=== PATIENT | female | born 1985 | race Caucasian/White ===

== ENCOUNTER 2017-01-29 19:10 | Emergency (ER) | payer SELFPAY ==
[2017-01-29 20:49] LABS: BASOPHIL % 0.4 % (0-2); PLATELET COUNT 264 x10^3mcL (130-400); RED CELL DISTRIBUTION WIDTH 13.2 % (11.5-14.5)
[2017-01-29 21:17] LABS: CALCIUM 8.9 mg/dL (8.5-10.1); CHLORIDE SERUM 103 mmol/L (98-107); CREATININE SERUM 0.9 mg/dL (0.6-1.0); GFR1 > 60 mL/min; GLUCOSE SERUM 108 mg/dL (74-106); POTASSIUM SERUM 3.5 mmol/L (3.5-5.1); SODIUM SERUM 139 mmol/L (136-145)
[2017-01-29 21:22] LABS: ALBUMIN 3.6 g/dL (3.4-5.0); ALKALINE PHOSPHATASE 72 U/L (46-116); ALT/SGPT 41 U/L (14-59); AST/SGOT 21 U/L (15-37); BILIRUBIN TOTAL 0.22 mg/dL (0.20-1.00); TOTAL PROTEIN, SERUM 7.9 g/dL (6.4-8.2); URIC ACID 5.1 mg/dL (2.6-6.0)
[2017-01-29 22:11] VITALS: BP 117/70
== END 2017-01-29 22:00 | disposition home or self-care (01) ==
LOC: ED 19:10
PROVIDERS: Emergency Medicine
DX: N92.0 Excessive and frequent menstruation with regular cycle (principal); M54.5 Low back pain; Z88.1 Allergy status to other antibiotic agents; Z88.8 Allergy status to other drugs, medicaments and biological substances
CPT/HCPCS: J2270; J2405

== ENCOUNTER 2018-05-28 19:32 | Inpatient (IN) | payer OTHER ==
[~2018-05-28] VITALS: Ht 157.5 cm; Wt 95.3 kg
[2018-05-28 19:39] VITALS: Ht 157.5 cm; Wt 95.3 kg
--- NOTE | 2018-05-28 19:50 | NUR ---
PT PRESENTED TO THE ED FOR SHARP EPIGASTRIC PAIN AND NAUSEA X 2 DAYS. PT STATES THEY VISITED URGENT CARE AND WERE DIRECTED TO COME HERE. PT IN NAD. BREATHING EVEN AND UNLABORED. PT DENIES ANY SOB. PT DENIES ANY MEDICATION USE FOR PAIN, DENIES EATING ANYTHING BEFORE PAIN. FAMILY AT BEDSIDE. CM AND O2 MONITOR IN PLACE. WILL CONTINUE TO MONITOR.
--- NOTE | 2018-05-28 19:55 | NUR ---
ULTRASOUND AT BEDSIDE.
[2018-05-28 20:12] LABS: BASOPHIL % 0.6 % (0-2); PLATELET COUNT 310 x10^3mcL (130-400); RED CELL DISTRIBUTION WIDTH 12.8 % (11.5-14.5)
[2018-05-28 20:22] LABS: CALCIUM 8.8 mg/dL (8.5-10.1); CHLORIDE SERUM 102 mmol/L (98-107); CREATININE SERUM 0.6 mg/dL (0.6-1.0); GFR1 > 60 mL/min; GLUCOSE SERUM 95 mg/dL (74-106); POTASSIUM SERUM 3.1 mmol/L (3.5-5.1); SODIUM SERUM 131 mmol/L (136-145)
[2018-05-28 20:28] LABS: ALBUMIN 3.6 g/dL (3.4-5.0); ALKALINE PHOSPHATASE 70 U/L (46-116); ALT/SGPT 37 U/L (14-59); AST/SGOT 18 U/L (15-37); BILIRUBIN TOTAL 0.15 mg/dL (0.20-1.00); LIPASE 228 IU/L (73-393); TOTAL PROTEIN, SERUM 8.2 g/dL (6.4-8.2)
--- NOTE | 2018-05-28 21:31 | NUR ---
PT OBSERVED SITTING ON GURNEY IN NAD. BREATHING EVEN AND UNLABORED. FAMILY AT BEDSIDE. PT STATES PAIN IN EPIGASTRIC AREA IS STILL SHARP AND RATED 7/10. DR CARDENAS MADE AWARE. AWAITING ORDERS. WILL CONTINUE TO MONITOR.
--- NOTE | 2018-05-28 22:56 | NUR ---
PT OBSERVED LAYING ON GURNEY IN NAD. BREATHING EVEN AND UNLABORED. PT IS A&0X4. SPEAKING FULL CLEAR SENTENCES. WILL CONTINUE TO MONITOR.
[2018-05-28 23:02] LABS: UA SPECIFIC GRAVITY 1.015 (1.005-1.035); microscopic required? YES; urine erythrocyte 3+ (NEGATIVE)
--- NOTE | 2018-05-29 00:31 | NUR ---
PT IS OBSERVED LAYING ON GURNEY IN POSITION OF COMFORT. PT IN NAD. BREATHING EVEN AND UNLABORED. FAMILY AT BEDSIDE. WILL CONTINUE TO MONITOR.
--- NOTE | 2018-05-29 00:38 | NUR ---
REPORT GIVEN TO JEANNINE SANCHEZ
[2018-05-29 01:23] VITALS: BP 100/49
--- NOTE | 2018-05-29 01:32 | NUR ---
RECEIVED PT FROM ER, PT ADMIT FOR INTRACTABLE ABD PAIN, R/O CHOLECYSTITIS, PT IS A/O X4, VERBAL RESPONSIVE, ABLE TO TELL WHAT SHE NEEDS. LUNG SOUND CLEAR BILATERAL, NO COUGH, NO SOB, PT DENY ANY CHEST PAIN OR DISCOMFORT, BOWEL SOUND PRESENT ALL 4 QUADRANTS, NO DISTENTION, PT C/O ABD PAIN ALL 4 QUADRATNS, ONLY C/O PAIN AT EPIGASTRIC AREA. NO RADIATED. PEDAL PULSE PRESENT BOTH FEET ,NO EDEMA, IV AT LEFT AC, NO LEAKING, NO INFILTRATION. ALL ADLS ASSIST, ALL NEED MET, CALL LIGHT IN REACH, WILL CONTINUE TO MONITOR.
--- NOTE | 2018-05-29 01:45 | NUR ---
PATIENT WAS GIVEN POTTASIUM AND TYLENOL PO PER EMAR. PATIENT IS CURRENTLY REPORTING 5/10 EPIGASTRIC PAIN. WILL RE-ASSESS.
[2018-05-29 05:50] VITALS: BP 109/52
--- NOTE | 2018-05-29 06:47 | NUR ---
PATIENT REPORTS 7/10 EPIGASTRIC PAIN. MORPHINE ADMINISTERED PER EMAR. IV INFUSING LR AT 80 ML/HR. NO ACUTE EVENTS THIS SHIFT. WILL ENDORSE CARE TO MORNING NURSE.
[2018-05-29 07:10] LABS: BASOPHIL % 0.3 % (0-2); PLATELET COUNT 279 x10^3mcL (130-400)
[2018-05-29 07:48] LABS: ALKALINE PHOSPHATASE 60 U/L (46-116); ALT/SGPT 32 U/L (14-59); AST/SGOT 21 U/L (15-37); BILIRUBIN TOTAL 0.14 mg/dL (0.20-1.00); CALCIUM 8.5 mg/dL (8.5-10.1); CARBON DIOXIDE 26.4 mmol/L (21-32); CHLORIDE SERUM 106 mmol/L (98-107); CREATININE SERUM 0.6 mg/dL (0.6-1.0); GFR1 > 60 mL/min; GLUCOSE SERUM 87 mg/dL (74-106); PHOSPHOROUS 3.5 mg/dL (2.5-4.9); POTASSIUM SERUM 4.3 mmol/L (3.5-5.1); SODIUM SERUM 139 mmol/L (136-145)
[2018-05-29 07:49] LABS: ALBUMIN 2.9 g/dL (3.4-5.0)
--- NOTE | 2018-05-29 08:16 | NUR ---
AT 0715 - RECEIVED PATIENT FROM NIGHT NURSE. AWAKE, ALERT AND ORIENTED X 4. REPORTS RELIEF OF PAIN AFTER RECEIVING PAIN MEDICATION. IV INFUSING LR AT 80 ML/HR. FOR HIDA SCAN TODAY. NPO EXCEPT MEDS. INSTRUCTED TO CALL WITH ANY NEEDS.
[2018-05-29 08:50] VITALS: BP 95/43
--- NOTE | 2018-05-29 13:49 | NUR ---
AT 0930 - SPOKE WITH RADIOLOGY REGARDING HIDA SCAN. THEY WILL CALL BACK WITH A TIME. TECH MADE AWARE OF PATIENT HAVING HAD MORPHINE AT 0635 THIS MORNING. AT 1000 - RECEIVED WORD THAT HIDA SCAN WILL BE DONE AT 1230 TODAY. AT 1245 - TAKEN TO [facility] FOR HIDA SCAN.
--- NOTE | 2018-05-29 14:20 | NUR ---
PATIENT BACK IN ROOM FOLLOWING HIDA SCAN. DENIES ANY PAIN AT THIS TIME. IV INFUSION OF LR RESUMED AT 80 ML/HR.
--- NOTE | 2018-05-29 18:18 | NUR ---
AT 1450 - SEEN BY DR GONZALEZ. NEW ORDERS RECEIVED. COMMENCED ON CLEAR LIQUID DIET. AT 1700 - C/O INCREASING ABDOMINAL PAIN AND MEDICATED WITH MORPHINE PER EMAR.
--- NOTE | 2018-05-29 19:00 | NUR ---
REC'D PT FROM DAY NURSE. FRIEND AT BEDSIDE. PT RESTING IN BED. AAOX4, SPEECH CLEAR, FOLLOWS COMMANDS. MED SURG, NO TELE. DENIES CP OR PALPITATIONS. REPORTS DIZZINESS UPON AMBULATION. NO EDEMA NOTED. ABD SOFT/ROUND. DENIES ABD PAIN, TENDERNESS, OR N/V. VOIDING FREELY. AMBULATORY. SKIN INTACT. IV TO LAC PATENT AND INFUSING, SITE WNL. CALL LIGHT WITHIN REACH, BED AT LOWEST POSITION. WILL CONTINUE TO MONITOR.
--- NOTE | 2018-05-29 19:26 | NUR ---
REPORTS PAIN UNDER CONTROL. NO C/O NAUSEA BUT PATIENT NOT TAKING MUCH CLEAR LIQUIDS PO. PATIENT AWARE OF NEED TO COLLECT URINE FOR URINE CULTURE. IV INFUSING LR AT 80 ML/HR. CARE ENDORSED TO NIGHT NURSE.
[2018-05-29 20:37] VITALS: BP 103/49
--- NOTE | 2018-05-29 21:59 | NUR ---
AMBIEN GIVEN PER REQUEST FOR INSOMNIA. DENIES PAIN AT THIS TIME. AMB TO THE RESTROOM WITH STEADY GAIT. DENIES DIZZINESS. WILL CONTINUE TO MONITOR.
--- NOTE | 2018-05-30 00:51 | NUR ---
PT RESTING IN BED WITH EYES CLOSED. LAYING ON L SIDE. APPEARS TO BE SLEEPING. NO SIGNS OF DISTRESS NOTED. BREATHING EVEN/UNLABORED ON RA. CALL LIGHT WITHIN REACH, BED AT LOWEST POSITION. WILL CONTINUE TO MONITOR.
--- NOTE | 2018-05-30 05:50 | NUR ---
PT RESTING IN BED WITH EYES CLOSED. EASILY AROUSABLE. PT HAS NOT HAD ANY COMPLAINTS OF PAIN TONIGHT. NO SIGNIFICANT CHANGES DURING SHIFT. BREATHING EVEN/UNLABORED ON RA. CALL LIGHT WITHIN REACH, BED AT LOWEST POSITION. WILL ENDORSE TO DAY NURSE.
[2018-05-30 06:29] VITALS: BP 109/61
[2018-05-30 06:47] LABS: PLATELET COUNT 257 x10^3mcL (130-400); RED CELL DISTRIBUTION WIDTH 13.2 % (11.5-14.5)
[2018-05-30 06:58] LABS: ALKALINE PHOSPHATASE 60 U/L (46-116); ALT/SGPT 32 U/L (14-59); AST/SGOT 24 U/L (15-37); BILIRUBIN DIRECT 0.08 mg/dL (0.0-0.2); BILIRUBIN TOTAL 0.24 mg/dL (0.20-1.00); CALCIUM 9.1 mg/dL (8.5-10.1); CARBON DIOXIDE 30.5 mmol/L (21-32); CHLORIDE SERUM 106 mmol/L (98-107); CREATININE SERUM 0.6 mg/dL (0.6-1.0); GFR1 > 60 mL/min; GLUCOSE SERUM 90 mg/dL (74-106); SODIUM SERUM 143 mmol/L (136-145); TOTAL PROTEIN, SERUM 7.1 g/dL (6.4-8.2)
[2018-05-30 07:02] LABS: ALBUMIN 2.9 g/dL (3.4-5.0)
--- NOTE | 2018-05-30 07:10 | NUR ---
SEEN RESTING IN BED AAOX4. NO SOB NOTED ON ROOM AIR. DENIES ABDOMINAL PAIN AT THIS TIME. ON FULL LIQUID DIET FOR BREAKFAST. LR TO LAC INFUSING WELL AT 80ML/HR, NO REDNESS OR INFILTRATION TO SITE. PLAN OF CARE INFORMED, CALL LIGHT PLACED WITHIN EASY REACH. SIDERAILS UP X2.
[2018-05-30 08:51] VITALS: BP 102/44
--- NOTE | 2018-05-30 10:25 | NUR ---
DENIES ABDOMINAL PAIN OR NAUSEA. IVF LR TO LAC INFUSING WELL.
[2018-05-30 11:39] LABS: BAND NEUTROPHIL 0 % (0-10); BASOPHIL 0 % (0-2); MONOCYTE 5 % (0-7); SEGMENTED NEUTROPHILS 64 % (37-75)
[2018-05-30] MEDS ORDERED: PROTONIX40 MG PO (14:57)
[2018-05-30] MEDS ORDERED: NORCO1 TA2 PO (14:57)
[2018-05-30] MEDS ORDERED: ZOFRAN ODT4 MG SL (14:58)
[2018-05-30 15:04] VITALS: BP 102/44
--- NOTE | 2018-05-30 15:39 | NUR ---
DISCHARGE INSTRUCTION EXPLAINED AND GIVEN TO PATIENT WHO IS AAOX4. S/L TO LAC REMOVED NO REDNESS OR INFILTRATION TO SITE, DRSG APPLIED. DENIES DISCOMFORT AT THIS TIME.
== END 2018-05-30 15:44 | disposition home or self-care (01) | DRG 392 ==
LOC: ED 19:32 → MU 23:59
PROVIDERS: Emergency Medicine; Internal Medicine Pulmonary Disease; ADMIT Internal Medicine Pulmonary Disease
DX: K29.70 Gastritis, unspecified, without bleeding (principal); N30.90 Cystitis, unspecified without hematuria; E86.9 Volume depletion, unspecified; E87.8 Other disorders of electrolyte and fluid balance, not elsewhere classified; Z88.1 Allergy status to other antibiotic agents; Z88.0 Allergy status to penicillin
CPT/HCPCS: 78226; A9537; C9113; J0696; J1885; J2270; J7120; Q0092; Q0162